=== PATIENT | female | born 1935 | race Caucasian/White ===

== ENCOUNTER 2018-06-20 20:37 | Emergency (ER) | payer MEDICARE ==
[~2018-06-20] VITALS: Ht 165.1 cm; Wt 49.9 kg
[~2018-06-20 20:37] MED LIST: AMOXICILLIN250 MG PO; ASPIR 8181 MG PO; BACTROBAN15 GM TOP; DOXYCYCLINE HY100 MG PO; FLAGYL250 MG PO; LEVAQUIN500 MG PO; LEVOTHYROXINE112 MCG PO; NORVASC5 MG PO; TOBREX5 ML OP; ULTRAM50 MG PO; VIGAMOX3 ML; VIT D PO; VITAMIN D35000 UNIT PO
[2018-06-20] MEDS ORDERED: TRAMADOL HCL 50 MG TAB PO ONE (21:00)
--- NOTE | 2018-06-20 22:46 | Diagnostic Imaging Report ---
KNEE LEFT THREE VIEWS, FEMUR 2 VIEWS MINIMUM LEFT, HIP LEFT 2-3 VW (+/- PELVIS) Comparison: None Clinical history: Fall onto the left leg, pain Findings: AP pelvis, left hip, femur and knee: Portions of the bony pelvis are excluded by bowel gas. Moderate bilateral hip and very mild left knee degenerative changes. No acute fracture or dislocation. Superior patellar enthesophyte. Vascular calcifications. Impression: No acute bony abnormality Signed by: Dr Mariana Sierra MD on 06/20/2018 10:43 PM
[2018-06-21 00:48] VITALS: BP 156/76
== END 2018-06-20 23:31 | disposition home or self-care (01) ==
LOC: ER 20:37
DX: S70.02XA Contusion of left hip, initial encounter (principal); S80.02XA Contusion of left knee, initial encounter; W01.0XXA Fall on same level from slipping, tripping and stumbling without subsequent striking against object, initial encounter; Y92.008 Other place in unspecified non-institutional (private) residence as the place of occurrence of the external cause
CPT/HCPCS: 99283

== ENCOUNTER 2019-01-04 18:44 | Emergency (ER) | payer MEDICARE, OTHER ==
[~2019-01-04] VITALS: Ht 165.1 cm; Wt 49.9 kg
--- OUTSIDE RECORDS SUMMARY | 2019-01-04 18:46 | XMS REPORT ---
Author Author [facility] Address Unknown Phone Unavailable Care Team Providers Care Garden Worker Name Role Phone Betty STAPLETON Unavailable Unavailable Problems This patient has no known problems. Allergies, Adverse Reactions, Alerts This patient has no known allergies or adverse reactions. Medications This patient has no known medications. Results Test Description Test Time Test Comments Text Results Atomic Results Result Comments HIP LEFT 2-3 VW (+/- PELVIS) 2018-06-20 22:39:00 [place] [address] Patient Name: MONIKA YOUNG MR #: [id number] : 1935 Age/Sex: 83/F Req #: [id number] Adm Physician: Ordered by: JENNIFER RUIZ BASEBALL PITCHER Report #: [id number] Location: ER Room/Bed: Procedure: [id number] DX/HIP LEFT 2-3 VW (+/- PELVIS) Exam Date: Exam Time: REPORT STATUS: Signed KNEE LEFT THREE VIEWS, FEMUR 2 VIEWS MINIMUM LEFT, HIP LEFT 2- 3 VW (+/- PELVIS) Comparison: None Clinical history: Fall onto the left leg, pain Findings: AP pelvis, left hip, femur and knee: Portions of the bony pelvis are excluded by bowel gas. Moderate bilateral hip and very mild left knee degenerative changes. No acute fracture or dislocation. Superior patellar enthesophyte. Vascular calcifications. Impression: No acute bony abnormality Signed by: Dr Rohith Sierra MD on 06/20/2018 10:43 PM Dictated By: ROHITH SIERRA MD 42 Transcribed By: DORA on 06/20/182242 COPY TO: JENNIFER RUIZ NP FEMUR 2 VIEWS MINIMUM LEFT 2018-06-20 22:39:00 [place] [address] Patient Name: MONIKA YOUNG MR #: [id number] : 1935 Age/Sex: 83/F Req #: [id number] Adm Physician: Ordered by: JENNIFER RUIZ B[employer]BALL PITCHER Report #: [id number] Location: ER Room/Bed: Procedure: [id number] DX/FEMUR 2 VIEWS MINIMUM LEFT Exam Date: Exam Time: REPORT STATUS: Signed KNEE LEFT THREE VIEWS, FEMUR 2 VIEWS MINIMUM LEFT, HIP LEFT 2- 3 VW (+/- PELVIS) Comparison: None Clinical history: Fall onto the left leg, pain Findings: AP pelvis, left hip, femur and knee: Portions of the bony pelvis are excluded by bowel gas. Moderate bilateral hip and very mild left knee degenerative changes. No acute fracture or dislocation. Superior patellar enthesophyte. Vascular calcifications. Impression: No acute bony abnormality Signed by: Dr Rohith Sierra MD on 06/20/2018 10:43 PM Dictated By: ROHITH SIERRA MD 42 Transcribed By: DORA on 06/20/182242 COPY TO: JENNIFER RUIZ NP KNEE LEFT THREE VIEWS 2018-06-20 22:39:00 [address] [place], [place] [address] Patient Name: MONIKA YOUNG MR #: [id number] : 1935 Age/Sex: 83/F Req #: [id number] Adm Physician: Ordered by: JENNIFER RUIZ NP Report #: [id number] Location: ER Room/Bed: Procedure: [id number] DX/KNEE LEFT THREE VIEWS Exam Date: Exam Time: REPORT STATUS: Signed KNEE LEFT THREE VIEWS, FEMUR 2 VIEWS MINIMUM LEFT, HIP LEFT 2-3 VW (+/- PELVIS) Comparison: None Clinical history: Fall onto the left leg, pain Findings: AP pelvis, left hip, femur and knee: Portions of the bony pelvis are excluded by bowel gas. Moderate bilateral hip and very mild left knee degenerative changes. No acute fracture or dislocation. Superior patellar enthesophyte. Vascular calcifications. Impression: No acute bony abn ormality Signed by: Dr Rohith Sierra MD on 06/20/2018 10:43 PM Dictated By: ROHITH SIERRA MD 42 Transcribed By: DORA on 06/20/182242 COPY TO: JENNIFER RUIZ NP
[2019-01-04 19:22] VITALS: BP 173/51
[2019-01-04] MEDS ORDERED: AMLODIPINE BESYLATE 10 MG TAB PO SCH (19:30)
== END 2019-01-04 19:30 | disposition home or self-care (01) ==
LOC: ER 18:44
DX: L24.9 Irritant contact dermatitis, unspecified cause (principal); I10 Essential (primary) hypertension; J44.9 Chronic obstructive pulmonary disease, unspecified; E03.9 Hypothyroidism, unspecified; Z86.73 Personal history of transient ischemic attack (TIA), and cerebral infarction without residual deficits
CPT/HCPCS: 99282

== ENCOUNTER 2019-09-17 13:44 | Inpatient (IN) | payer MEDICARE, OTHER ==
[~2019-09-17] VITALS: Ht 165.1 cm; Wt 49.9 kg
[2019-09-17] MEDS ORDERED: CEFTRIAXONE SOD 1 GM/NS 50 ML 50 ML IV STA (14:29)
[2019-09-17] MEDS ORDERED: SODIUM CHLORIDE 0.9% 1000ML 1,000 ML IV SCH (16:44)
[2019-09-17] MEDS ORDERED: ALBUTEROL/IPRATROPIUM 3 ML NEB NEB PRN (16:45)
[2019-09-17 16:56] LABS: BASOPHILS % 0.2 % (0.0-1.0); EOSINOPHILS % 0.1 % (0.0-6.0); HEMATOCRIT 44.1 % (34.2-44.1); HEMOGLOBIN 14.5 g/dL (12.0-16.0); LYMPHOCYTES % 7.4 % (18.0-39.1); MEAN CORPUSCULAR HGB CONC 32.9 g/dL (31-35); MEAN CORPUSCULAR VOLUME 94.4 fL (81-99); MONOCYTES # (AUTO) 1.4 (0.2-0.8); NEUTROPHILS # (AUTO) 11.1 (2.1-6.9); NEUTROPHILS % 81.5 % (38.7-80.0); PLATELET COUNT 188 x10e3/uL (140-360); RED BLOOD COUNT 4.67 x10e6/uL (3.6-5.1); RED CELL DISTRIBUTION WIDTH 14.8 % (11.7-14.4)
[2019-09-17] MEDS ORDERED: LEVOFLOXACIN 500MG/D5W 100ML 100 ML IV SCH (17:00)
[2019-09-17 17:12] LABS: INR 0.93; PARTIAL THROMBOPLASTIN TIME 32.9 seconds (23.8-35.5)
[2019-09-17] MEDS ORDERED: ONDANSETRON HCL INJ 2MG/ML 2ML 2 MG/ML VIAL IV PRN (17:15)
[2019-09-17] MEDS ORDERED: TRAMADOL HCL 50 MG TAB PO PRN (17:15)
[2019-09-17] MEDS ORDERED: HYDRALAZINE HCL 20 MG/ML VIAL IV PRN (17:15)
[2019-09-17] MEDS ORDERED: ACETAMINOPHEN 325 MG TAB PO PRN (17:15)
[2019-09-17 17:22] LABS: ALBUMIN 3.2 g/dL (3.5-5.0); ANION GAP 18.5 mmol/L (8-16); CALCIUM 9.1 mg/dL (8.4-10.2); CREATININE, SERUM 1.28 mg/dL (0.57-1.11); POTASSIUM 3.5 mmol/L (3.5-5.1)
[2019-09-17 17:30] LABS: CREATINE KINASE MB 4.9 ng/mL (0-5.0)
[2019-09-17 17:31] LABS: B-TYPE NATRIURETIC PEPTIDE2 223.9 pg/mL (0-100)
[2019-09-17] MEDS ORDERED: ALBUTEROL/IPRATROPIUM 3 ML NEB NEB SCH (19:00)
[2019-09-17] MEDS ORDERED: LEVOTHYROXINE SODIUM 125 MCG TAB PO SCH (21:00)
[2019-09-17] MEDS ORDERED: GUAIFENESIN 600MG/DEXTROMETHORPHAN 30MG TABSR PO SCH (21:00)
[2019-09-17] MEDS ORDERED: AMLODIPINE BESYLATE 10 MG TAB PO SCH (21:00)
[2019-09-17] MEDS ORDERED: ASPIRIN 81 MG CHEW TAB PO SCH (21:00)
[2019-09-17] MEDS ORDERED: LEVOTHYROXINE SODIUM 112 MCG TAB PO SCH (21:00)
[2019-09-17] MEDS ORDERED: AMLODIPINE BESYLATE 5 MG TAB PO SCH (21:00)
[2019-09-17] MEDS ORDERED: QUETIAPINE FUMA25 MG PO (21:04)
[2019-09-17] MEDS ORDERED: LEVOTHYROXINE50 MCG PO (21:05)
[2019-09-17] MEDS ORDERED: METOPROLOL TART50 MG PO (21:15)
--- NOTE | 2019-09-17 21:15 | NUR ---
to room to administer hs medication per orders. pt noted attempting to get out of bed. pt refused medication, pt states "that's poison." pt began cursing and saying "I'm getting the hell out of here, i don't give a shit what anybody says." pt attempted to calm patient. patient arguing c . states that wants to take patient out of hospital ama. states that once patient "gets this way there is no changing her mind." charge nurse informed. ama form signed. vik lazo called and informed that patient left ama.
[2019-09-17] MEDS ORDERED: [UNRECOGNIZED DRUG - OTHER] (21:16)
[2019-09-17] MEDS ORDERED: QUETIAPINE FUMARATE 25 MG TAB PO STA (21:17)
[2019-09-17] MEDS ORDERED: QUETIAPINE FUMARATE 25 MG TAB PO SCH (21:30)
[2019-09-17 21:54] VITALS: BP 143/65
[2019-09-18] MEDS ORDERED: LEVOTHYROXINE SODIUM 50 MCG TAB PO SCH (06:00)
--- NOTE | 2019-09-18 09:16 | Diagnostic Imaging Report ---
EXAMINATION: CHEST 2 VIEWS INDICATION: Pneumonia COMPARISON: None FINDINGS: LINES/TUBES:None LUNGS:The lungs are hyperinflated. Mild biapical pleural parenchymal thickening/scarring. No focal consolidation or pulmonary edema. Calcified granuloma at the right midlung. Mild bibasilar subsegmental atelectasis. PLEURA:No pleural effusion or pneumothorax. MEDIASTINUM:The cardiomediastinal silhouette appears normal in size and shape. Atherosclerotic calcifications of the thoracic aorta. BONES/SOFT TISSUES:No acute osseous injury. ABDOMEN:No free air under the diaphragm. IMPRESSION: Hyperinflated lungs. No focal pneumonia or pulmonary edema. Mild bibasilar subsegmental atelectasis. Signed by: Christy Hughes MD on 09/18/2019 9:14 AM
[2019-09-18] MEDS ORDERED: QUETIAPINE FUMARATE 25 MG TAB PO SCH (21:00)
== END 2019-09-17 22:00 | disposition left against medical advice (07) | DRG 195 ==
LOC: ER 13:44 → ERHOLD 16:53
PROVIDERS: ADMIT Internal Medicine; ATTEND Internal Medicine
DX: J15.9 Unspecified bacterial pneumonia (principal); R09.02 Hypoxemia; E86.0 Dehydration; Z88.5 Allergy status to narcotic agent; Z91.041 Radiographic dye allergy status; G30.9 Alzheimer's disease, unspecified; F02.80 Dementia in other diseases classified elsewhere, unspecified severity, without behavioral disturbance, psychotic disturbance, mood disturbance, and anxiety; Z86.73 Personal history of transient ischemic attack (TIA), and cerebral infarction without residual deficits; Z83.3 Family history of diabetes mellitus; Z82.49 Family history of ischemic heart disease and other diseases of the circulatory system
CPT/HCPCS: 36415; 71046; 80053; 82550; 82553; 83605; 83880; 84484; 85025; 85610; 85730; 87040; 93005; 99284; J0696; J1956; J7030